=== PATIENT | female | born 1975 | race Caucasian/White ===

== ENCOUNTER 2018-05-19 02:52 | Emergency (ER) | payer MEDICAID ==
[~2018-05-19 02:52] MED LIST: IBUP-1222 PO; OXYC-302 PO
== END 2018-05-19 05:00 | disposition home or self-care (01) ==
LOC: ED 04:33
DX: S20.211A Contusion of right front wall of thorax, initial encounter (principal); W19.XXXA Unspecified fall, initial encounter; Y93.89 Activity, other specified; Y92.009 Unspecified place in unspecified non-institutional (private) residence as the place of occurrence of the external cause; Y99.8 Other external cause status
CPT/HCPCS: 71045; 99283